=== PATIENT | male | born 1945 | race Caucasian/White ===

== ENCOUNTER → 2016-09-02 10:20 | Outpatient (CLI) | payer BC, MEDICARE ==
[2015-09-21 08:48] VITALS: BMI 19.3
[~2016-09-02 10:20] MED LIST: BAYER CHEWABLE81 MG PO; CATAPRES0.1 MG PO; COMBIGAN OPHT DR5 ML LEFT EYE; CORDARONE200 MG PO; ELIQUIS2.5 MG PO; HUMALOG MIX 50/53 ML SQ; HYDROCODONE-APA1 TAB PO; LANTUS INSULIN10 ML; LISINOPRIL10 MG PO; MEGACE40 MG PO; MULTIPLE VITAMI1 TA1 PO; NIFEDIPINE ER30 MG PO; PEPCID20 MG PO; PRINIVIL20 MG PO; RENA-VITE TABL0.8 MG PO; RENVELA800 MG PO; REVATIO20 MG PO; ROCALTROL0.25 MCG PO; TOUJEO SOL300 UNIT/1; TRAZODONE HCL50 MG PO; XALATAN 0.0052.5 ML LEFT EYE; ZOCOR20 MG PO
== END | disposition home or self-care (01) ==
LOC: D.RAD 10:20 → D.CT 11:00 → D.RAD 11:00
DX: M25.552 Pain in left hip (principal)

== ENCOUNTER → 2016-09-15 15:30 | Outpatient (CLI) | payer BC, MEDICARE ==
[2015-09-21 08:48] VITALS: BMI 19.3
== END | disposition home or self-care (01) ==
LOC: D.CT 14:00
DX: M25.552 Pain in left hip (principal); R93.8 Abnormal findings on diagnostic imaging of other specified body structures

== ENCOUNTER 2017-04-29 09:13 | Emergency (ER) | payer BC, MEDICARE ==
[2015-09-21 08:48] VITALS: BMI 19.3
== END 2017-04-29 11:30 | disposition home or self-care (01) ==
LOC: D.ER 09:13
DX: M54.30 Sciatica, unspecified side (principal); S39.012A Strain of muscle, fascia and tendon of lower back, initial encounter; W19.XXXA Unspecified fall, initial encounter; Y93.89 Activity, other specified; Y92.019 Unspecified place in single-family (private) house as the place of occurrence of the external cause; E11.9 Type 2 diabetes mellitus without complications; Z79.4 Long term (current) use of insulin; I10 Essential (primary) hypertension

== ENCOUNTER 2017-05-26 06:34 | Inpatient (IN) | payer BC, MEDICARE ==
[~2017-05-26] VITALS: Ht 180.3 cm; Wt 62.1 kg
[2017-05-26] MEDS ORDERED: GABAPENTIN100 MG PO (09:49)
[2017-05-26] MEDS ORDERED: HYDRALAZINE HCL50 MG PO (09:51)
[2017-05-26] MEDS ORDERED: LASIX20 MG PO (09:51)
[2017-05-26] MEDS ORDERED: METOPROLOL TART50 MG PO (09:53)
[2017-05-26] MEDS ORDERED: NOVOLOG100 U/M1 (10:05)
[2017-05-26] MEDS ORDERED: TRESIBA FL100 UNIT/1 SC (10:05)
[2017-05-26 15:36] VITALS: BP 160/77
[2017-05-26 16:05] VITALS: BP 182/87; Ht 180.3 cm; Wt 62.1 kg
[2017-05-26 20:11] VITALS: BP 155/78
[2017-05-27] VITALS: BP 146/80
[2017-05-27 05:10] LABS: BASOPHILS 0.4 % (0-2); EOSINOPHILS 1.2 % (0-7); HEMATOCRIT 32.2 % (42.0-54.0); HEMOGLOBIN 10.8 g/dL (13.5-17.5); IMMATURE GRANULOCYTES 0.2 % (0-5); LYMPHOCYTES 26.3 % (15-50); MCH 33.9 pg (26.0-34.0); MCHC 33.5 g/dL (31.0-37.0); MCV 100.9 fL (80.0-100.0); MEAN PLATELET VOLUME 10.3 fL (7.4-10.4); MONOCYTES 10.5 % (2-11); NEUTROPHILS 61.4 % (40-80); PLATELET COUNT 327 10x3/uL (130-400); RBC 3.19 10x6/uL (4.20-6.10); RDW 13.1 % (11.5-14.5); WBC 8.4 10x3/uL (4.8-10.8)
[2017-05-27 05:33] VITALS: BP 146/73
[2017-05-27 05:40] LABS: ANION GAP 12.9 mmol/L (8-16); CALCIUM 8.6 mg/dL (8.5-10.1); CARBON DIOXIDE 30.2 mmol/L (21.0-32.0); CREATININE - SERUM 4.9 mg/dL (0.6-1.3); PHOSPHOROUS 4.6 mg/dL (2.5-4.9); POTASSIUM - SERUM 4.1 mmol/L (3.5-5.1)
[2017-05-27 05:43] LABS: TROPONIN-I 0.072 ng/mL (0.000-0.060)
[2017-05-27 08:33] VITALS: BP 131/73
== END 2017-05-27 10:45 | disposition home or self-care (01) | DRG 291 ==
LOC: D.M2 06:34 → OBSVTIME 07:51 → D.M2 09:08
PROVIDERS: Internal Medicine Nephrology
PROC: 5A1D70Z Performance of Urinary Filtration, Intermittent, Less than 6 Hours Per Day (ICD-10-PCS; principal; 2017-05-26)
DX: I13.2 Hypertensive heart and chronic kidney disease with heart failure and with stage 5 chronic kidney disease, or end stage renal disease (principal); N18.6 End stage renal disease; J81.0 Acute pulmonary edema; E87.70 Fluid overload, unspecified; I50.9 Heart failure, unspecified; E11.22 Type 2 diabetes mellitus with diabetic chronic kidney disease; Z99.2 Dependence on renal dialysis; Z79.4 Long term (current) use of insulin; I48.0 Paroxysmal atrial fibrillation; H40.9 Unspecified glaucoma

== ENCOUNTER 2017-08-16 18:06 | Emergency (ER) | payer BC, MEDICARE ==
[~2017-08-16] VITALS: Ht 180.3 cm; Wt 68.2 kg
[~2017-08-16 18:06] MED LIST changes: +GABAPENTIN100 MG PO; +HYDRALAZINE HCL50 MG PO; +LASIX20 MG PO; +METOPROLOL TART50 MG PO; +NOVOLOG100 U/M1; +TRESIBA FL100 UNIT/1 SC
[2017-08-16 18:15] VITALS: Ht 180.3 cm; Wt 68.2 kg
[2017-08-16 21:00] VITALS: BP 216/111
== END 2017-08-16 21:30 | disposition home or self-care (01) ==
LOC: D.ER 18:06
DX: S49.92XA Unspecified injury of left shoulder and upper arm, initial encounter (principal); W22.8XXA Striking against or struck by other objects, initial encounter; Y93.89 Activity, other specified; Y92.019 Unspecified place in single-family (private) house as the place of occurrence of the external cause; I12.0 Hypertensive chronic kidney disease with stage 5 chronic kidney disease or end stage renal disease; N18.6 End stage renal disease

== ENCOUNTER 2017-09-01 14:11 | Emergency (ER) | payer BC, MEDICARE ==
[~2017-09-01] VITALS: Ht 180.3 cm; Wt 67.1 kg
[2017-09-01 14:14] VITALS: Ht 180.3 cm; Wt 67.1 kg
[2017-09-01 16:04] LABS: BASOPHILS 0.3 % (0-2); EOSINOPHILS 0.8 % (0-7); HEMATOCRIT 35.8 % (42.0-54.0); IMMATURE GRANULOCYTES 0.2 % (0-5); LYMPHOCYTES 12.8 % (15-50); MCH 34.2 pg (26.0-34.0); MCHC 33.5 g/dL (31.0-37.0); MEAN PLATELET VOLUME 10.4 fL (7.4-10.4); MONOCYTES 5.6 % (2-11); NEUTROPHILS 80.3 % (40-80); PLATELET COUNT 202 10x3/uL (130-400); RBC 3.51 10x6/uL (4.20-6.10); RDW 13.4 % (11.5-14.5)
[2017-09-01 16:19] LABS: KETONE - SERUM NEGATIVE (NEGATIVE)
[2017-09-01 16:32] LABS: ALBUMIN 4.1 g/dL (3.4-5.0); ALKALINE PHOSPHATASE 78 U/L (46-116); ALT (SGPT) 21 U/L (10-68); BILIRUBIN - TOTAL 0.38 mg/dL (0.2-1.3); CALC OSMOLALITY 292 mosm/kg (275-300); CARBON DIOXIDE 30.6 mmol/L (21.0-32.0); CHLORIDE - SERUM 99 mmol/L (98-107); CREATININE - SERUM 7.6 mg/dL (0.6-1.3); POTASSIUM - SERUM 4.9 mmol/L (3.5-5.1); PROTEIN - SERUM 7.6 g/dL (6.4-8.2); SODIUM 139 mmol/L (136-145); UREA NITROGEN 47 mg/dL (7-18); eGFR NON AFRICAN AMERICAN 7 mL/min (90-120)
[2017-09-01 16:33] LABS: GLUCOSE 151 mg/dL (74-106)
[2017-09-01 16:39] LABS: CKMB 4.6 U/L (0.0-3.6); CREATINE KINASE 180 UL (21-232); MAGNESIUM - SERUM 2.6 mg/dL (1.8-2.4)
[2017-09-01 16:59] LABS: APPEARANCE CLEAR (CLEAR); BILIRUBIN NEGATIVE (NEGATIVE); COLOR YELLOW (YELLOW); GLUCOSE 500 mg/dL (NEGATIVE); KETONE NEGATIVE (NEGATIVE); NITRITE NEGATIVE (NEGATIVE); PROTEIN 1+ mg/dL (NEGATIVE); RED CELLS - URINE 0-5 /hpf (0-5); UROBILINOGEN NORMAL (NORMAL); WHITE CELLS - URINE 0-5 /hpf (0-5)
[2017-09-01 20:11] VITALS: BP 215/104
== END 2017-09-01 20:12 | disposition left against medical advice (07) ==
LOC: D.ER 14:11
PROVIDERS: Family Medicine
DX: E11.649 Type 2 diabetes mellitus with hypoglycemia without coma (principal); N17.9 Acute kidney failure, unspecified; I10 Essential (primary) hypertension; K21.9 Gastro-esophageal reflux disease without esophagitis

== ENCOUNTER 2018-01-25 09:59 | Inpatient (IN) | payer MEDICARE, BC ==
[~2018-01-25] VITALS: Ht 180.3 cm; Wt 65.7 kg
--- NOTE | ~2018-01-25 | CN ---
PATIENT NAME:MICHELET SHI MEDICAL RECORD: [id number] : 45 LOCATION:D. D.2139 ADMIT DATE: 01/25/18 ACCOUNT: [id number] CONSULTING PHYSICIAN: AIDE GARCIA MD REFERRING PHYSICIAN: BHARAT COOPER MD DATE OF CONSULTATION: 01/25/2018 CARDIOLOGY CONSULT DIAGNOSES: 1. Elevated troponin, non-Q-wave myocardial infarction. 2. Coronary artery disease. 3. Status post coronary artery bypass graft surgery. 4. Hypertension. 5. End-stage renal failure, on dialysis. HISTORY OF PRESENT ILLNESS: Mr. Shi presents with chest discomfort. Troponin is positive. EKG shows T-wave inversions in the lateral leads. He does have a history of coronary artery disease, status post coronary artery bypass graft surgery in 2016, 4-vessel. PHYSICAL EXAMINATION: GENERAL APPEARANCE: Well-nourished, well-developed, appears stated age. Level of distress, comfortable. PSYCHIATRIC: Mental status, alert, normal affect. Orientation, oriented to time, place and person. EYES: Lids and conjunctiva, noninjected. No discharge, no pallor. ENT: Lips, teeth, gums, normal dentition. Oropharynx, no cyanosis, no pallor. NECK: Carotid arteries, bilateral normal upstroke, no bruits, no thrills. JUGULAR VEINS: No jugular venous pressure or distention. CERVICAL LYMPH NODES: Nontender, nonenlarged. THYROID: Not enlarged. Nontender. No nodules. LUNGS: Respiratory effort, unlabored. CHEST: Normal curvature. No thoracic deformity. No chest wall tenderness. Percussion, resonant. Auscultation, clear. No wheezes, no rales, no rhonchi. CARDIOVASCULAR: Precordial exam, nondisplaced. No heaves or pericardial thrills. Rate and rhythm, regular. Heart sounds, normal S1, normal S2. No S3, no gallop, no rub. Systolic murmur, not heard. Diastolic murmur, not heard. EXTREMITIES: No cyanosis, no edema. Peripheral pulses, full and equal in all extremities, except as noted. No bruits appreciated. ABDOMEN: Soft, nondistended. Normal aorta. No bruit. Nontender. No masses. Liver, nontender, no hepatomegaly. Spleen, nontender, no splenomegaly. MUSCULOSKELETAL: No joint tenderness. No joint swelling. No erythema. NEUROLOGICAL: Normal gait, normal strength, normal tone. SKIN: Warm and dry. OVERALL IMPRESSION: Non-Q-wave myocardial infarction with increasing chest pain, abnormal ECG, most likely he has impending graft failure or new hemodynamically significant disease. We will proceed with coronary angiography. Further care depends upon the findings of the angiography. TRANSINT:[id number] Voice Confirmation ID: [id number] DOCUMENT ID: [id number] CONSULT REPORT [id number] MICHELET SHI JEFFREY MD at 1025 CC: [id number] DICTATION DATE: 01/25/18 1132 GEOPHYSICAL PROSPECTING PERMIT AGENT: 01/25/18 1157 DIS IN 01/26/18 [place] [id number] [place] [address]
--- NOTE | ~2018-01-25 | OP ---
PATIENT NAME: MICHELET SHI MEDICAL RECORD: [id number] :45 LOCATION:D.M2 D.2139 ADMISSION DATE:01/25/18 SURGEON: AIDE GARCIA MD DATE OF OPERATION: 01/26/2018 PROCEDURES: 1. PTCA stent RCA. 2. Intravascular ultrasound. 3. Left heart catheterization. 4. Selective coronary angiography. 5. Vein graft angiography. 6. CALL angiography. 7. Left ventriculogram. INDICATION: Angina and coronary artery disease, non-Q-wave myocardial infarction. PROCEDURE IN DETAIL: After informed consent was obtained and after a detailed description of the risks, benefits as well as alternative therapies, the patient elected to proceed with angiogram and angioplasty. The right femoral area was prepped and draped in normal sterile fashion. Right femoral artery was cannulated via modified Seldinger technique with placement of 6-Croatian sheath. All catheters exchanged through this sheath. FINDINGS: The left ventriculogram was performed in standard 30-degree NYE view reveals preserved cardiac wall motion, ejection fraction estimated at 50% to 55%. SELECTIVE CORONARY ANGIOGRAPHY: 1. Left main is with no significant angiographic disease. 2. Left anterior descending is totally occluded in the mid vessel 3. CALL to the LAD is widely patent. 4. Left circumflex is totally occluded mid vessel. 5. Vein graft to the circumflex in a skipped fashion from OM1-OM2 is widely patent. 6. The right coronary artery has a long area of 80+ percent stenosis confirmed by intravascular ultrasound in the mid vessel. This is a non-grafted vessel. PTCA STENT OF THE RIGHT CORONARY ARTERY: The stent used was 3.5 x 38 and 3.5 x 22, both [place] stents. Result was 0% residual stenosis. OVERALL IMPRESSION: Successful percutaneous transluminal coronary angioplasty stent of the right coronary artery going from 80% initial stenosis to 0% residual. TRANSINT:[id number] Voice Confirmation ID: [id number] DOCUMENT ID: [id number] OPERATIVE REPORT [id number] MICHELET HSI JEFFREY MD at 1021 CC: [id number] DICTATION DATE: 01/26/18 1001 ROLLER MAKER: 01/26/18 1151 DIS IN 01/26/18 [place] [id number] [place] [id number]
--- NOTE | ~2018-01-25 | MORECARE ---
CASE MANAGEMENT DISCHARGE SUMMARY PATIENT: MICHELET SHI UNIT: [id number] ADM DATE: 01/25/18 AGE: 72 : 45 SEX: M ROOM/BED: D.2139 AUTHOR: SANTOS JAMES PHYSICIAN: REFERRING PHYSICIAN: BHARAT COOPER MD DATE OF SERVICE: 01/27/18 Discharge Plan Patient Name: MICHELET SHI Facility: [facility]:[place] : 1945 Planned Disposition: Home Anticipated Discharge Date: 01/26/18 Discharge Date: 01/26/2018 Expected LOS: 1 Initial Reviewer: [email or web address] Initial Review Date: 01/27/2018 Generated: 01/27/18 7:54 am Patient Name: MICHELET SHI Page [id number] at 0654 All edits/amendments must be made on the electronic document DICTATION DATE: 01/27/18653 MARKET GARDENER: YESI 01/27/18653 RPT#: [id number] DC DATE:01/26/18 STATUS: DIS IN [facility] [address] [facility] [place] [address] END OF REPORT
--- NOTE | ~2018-01-25 | EC ---
PATIENT:MICHELET SHI DATE OF SERVICE: 01/25/18 SEX: M MEDICAL RECORD: [id number] DATE OF : 45 LOCATION:D. D.213 AGE OF PATIENT: 72 ADMISSION DATE: 01/25/18 REFERRING PHYSICIAN: INTERPRETING PHYSICIAN: AIDE GONZALEZ MD ECHOCARDIOGRAM REPORT ECHO CHARGES 4 ECHO COMPLETE Date: 01/25/18 CLINICAL DIAGNOSIS: CAD/HX OF CABG/ PULMONARY EDEMA/ELEVATED TROPONIN ECHOCARDIOGRAPHIC MEASUREMENTS (adult normal given) AC root (d.<3.7cm) 3.3 cm LV Septum d (<1.2 cm> 1.2 cm Valve Excursion 1.3 cm LV Septum (systole) 1.5 cm Left Atria (s.<4.0cm> 4.0 cm LVPW d(<1.2cm) 1.4 cm RV (d.<2.3cm) 4.1 cm LVPW (sytole) 1.8 cm LV diastole(<5.6CM) 5.1 cm MV E-F(>70mm/sec) cm LV systole 4.1 cm LVOT Diameter 1.5 cm MV exc.(>10mm) 1.1 cm Est.ejection fraction (50-75%) % DOPPLER: LVIT cm/sec A 125 cm/sec E 111 cm/sec LA cm/sec RVSP 55 mmHg LVOT 112 cm/sec AOP1/2T m/s Asc. Ao 163 cm/sec RVOT 114 cm/sec RA cm/sec PA 128 cm/sec AV Gradient Peak 10.58mmHg AV Mean 5.32 mmHg AV Area 1.2 cm MV Gradient Peak 8.56 mmHg MV Mean 4.78 mmHg MV Area cm COMMENTS: Class A Truck Driver: Ajay PEREZ Hospital Administrator: 1 Dr. Gonzalez TAPE# PACS Pericardial Effusion N DATE OF SERVICE: 01/25/2018 PROCEDURE: Echocardiogram. FINDINGS: 1. Left ventricular chamber size is within normal limits. Left ventricular systolic function lower limits of normal at 45% to 50%. 2. Left atrium is upper limits of normal at 4.0 cm. Right atrium and right ventricle chamber sizes are mildly dilated. 3. Valvular structures have normal structure and motion. ECHOCARDIOGRAM REPORT [id number] MICHELET SHI 4. Doppler interrogation reveals sorh-my-hcggorht mitral regurgitation, mild to moderate tricuspid regurgitation, no other valvular insufficiency or stenosis. Pulmonary systolic pressure; however, is elevated at 55 mmHg. 5. No evidence of pericardial effusion or left ventricular thrombus. TRANSINT:[id number] Voice Confirmation ID: [id number] DOCUMENT ID: [id number] AIDE GONZALEZ MD at 1025 CC: [id number] DICTATION DATE: 01/26/18 1039 DESIGN DRAFTSMAN: 01/26/18 1201 DIS IN 01/26/18 [place] [id number] [place] [id number]
--- NOTE | ~2018-01-25 | HEMODYNAMI ---
PATIENT:MICHELET SHI MEDICAL RECORD: [id number] : 45 [id number] AD[facility] DATE: 01/25/18 Generatedon:01/26/201810:05 Patient name: MICHELET SHI Patient #: [id number] SSN: : 1945 Date of study: 01/26/2018 Page: Of Hemodynamic Procedure Report Patient Data Patient Demographics Procedure consent was obtained First Name: MICHELET Gender: Male Last Name: JOSE GUADALUPE : 1945 [facility] Initial: D Age: 72 year(s) Patient #: [id number] Race: Unknown Additional ID: [id number] Contact details Address: [address] [place] [address] State: [place] City: [place] Zip code: [address] Past Medical History Allergies: No known allergies Admission Admission Data Admission Date: 01/25/2018 Admission Time: 10:35 Admit Source: Other Room #: D.2139 Lab Results Lab Result Date: 01/26/2018 Lab Result Time: 0:00 Biochemistry Name Units Result Min Max BUN mg/dl 84 --(----)-* 7 18 Creatinine mg/dl 10.1 --(----)-* 0.6 1.3 CBC Name Units Result Min Max Hemoglobin g/dl 12.7 -*(----)-- 13.5 17.5 Procedure Procedure Types Cath Procedure Diagnostic Procedure LHC LHC w/Coronaries w/Grafts FFR/IVUS Intra-Coronary IVUS Initial Sedation Charges Moderate Sedation up to 15 minutes PCI Procedure Coronary Stent Coronary Stent Initial Procedure Description Procedure Date Procedure Date: 01/26/2018 Procedure Start Time: 9:44 Procedure End Time: 10:05 Procedure Staff Name Function Gama Gonzalez MD Performing Physician Lilli Montalvo RN Cell Tester Analia Chaney RN Nurse Jeremiah Cade RT Scrub Candida Whitley RT Monitor Procedure Data Cath Procedure Fluoroscopy Diagnostic fluoroscopy Total fluoroscopy Time: 5.4 time: 5.4 min min Diagnostic fluoroscopy Total fluoroscopy dose: 610 dose: 610 mGy mGy Contrast Material Contrast Material Type Amount (ml) Isovue 300 144 Entry Location Entry Primary Successful Side Size Upsize Upsize Entry Closure Succes sful Closure Location (Fr) 1 (Fr) 2 (Fr) Remarks Device Remarks Femoral Right 5 Fr 6 Fr Exoseal artery Short Estimated blood loss: 10 ml Diagnostic catheters Device Type Used For End Catheter Placement MULTIPACK Pigtail 5 Fr LV Angiography catheter MULTIPACK JL 4.0 5Fr Left Coronary catheter Angiography MULTIPACK 3DRC 5Fr Internal mammary catheter arteriography MULTIPACK 3DRC 5Fr Right Coronary catheter Angiography DIAGNOSTIC AR1 MOD 5Fr SVG Angiography catheter ([id number]) Procedure Complications No complications Procedure Medications Medication Administration Route Dosage 0.9% NaCl I.V. Oxygen etCO2 Nasal cannula 2 l/min Lidocaine 2% added to field 20 Heparin Flush Bag added to field 2 bags (1000units/500ml NS) Versed I.V. 2 mg Fentanyl I.V. 100 mcg Versed I.V. 2 mg Heparin Bolus I.V. 4000 units Plavix P.O. 75 mg Hemodynamics Rest HGB: 12.7 (g/dl) Heart Rate: 103 (bpm) Snapshots Pre Cath Intra NCS Post Cath Vital Signs Time Heart Resp SPO2 etCO2 NIBP (mmHg) Rhythm Pain Sedation Rate (ipm) (%) (mmHg) Status Level (bpm) 9:31:42 94 10 98 35.7 171/92(140) NSR 0 (11) 10(A) , No pain 9:35:58 88 10 99 33 139/79(116) NSR 0 (11) 10(A) , No pain 9:40:02 92 12 96 19 102/79(96) NSR 0 (11) 10(A) , No pain 9:44:55 90 14 97 41.8 131/75(99) NSR 0 (11) 9(A) , No pain 9:50:02 84 15 95 35.7 128/57(98) NSR 0 (11) 9(A) , No pain 9:54:14 84 13 97 28.1 122/69(108) NSR 0 (11) 9(A) , No pain 9:58:28 83 16 98 38 123/70(90) NSR 0 (11) 9(A) , No pain 10:02:44 84 6 98 33.4 117/61(97) NSR 0 (11) 10(A) , No pain Medications Time Medication Route Dose Verified Delivered Reason Notes Effectiveness by by 9:30:58 0.9% NaCl I.V. kvo Gama Analia used for Lisa Chaney property administrator 9:31:05 Oxygen etCO2 2 Gama Analia used for Nasal l/min Lisa Chaney procedure cannula RN 9:31:09 Lidocaine 2% added 20ml Gama Gama for local to vial Lisa Gonzalez MD anesthetic field 9:31:15 Heparin Flush added 2 Gama Gama used for Bag to bags Lisa Gonzalez MD procedure (1000units/500ml field NS) 9:37:06 Versed I.V. 2 mg Gama Analia for sedation Lisa Chaney RN 9:37:13 Fentanyl I.V. 100 Gama Analia for sedation mcg Lisa Chaney RN 9:43:00 Versed I.V. 2 mg Gama Analia for sedation Lisa Chaney RN 9:52:32 Heparin Bolus I.V. 4000 Gama Analia for verif ied units Lisa Chaney anticoagulation with Dr. KIM Gonzalez 10:03:36 Plavix P.O. 75 mg Gama Analia for Lisa Chaney antiplatelet RN therapy Procedure Log Time Note 9:14:43 Admit Source: Other 9:15:34 Diagnostic Cath status Elective 9:15:39 Lilli Montalvo RN sent for patient. Start room use. 9:15:40 Time tracking: Regular hours (M-F 7:00 - 5:00) 9:15:45 Plan of Care:Hemodynamics will remain stable., Cardiac rhythm will remain stable., Comfort level will be maintained., Respiratory function will remain adequate., Patient/ family verbilizes understanding of procedure., Procedure tolerated without complication., Recovers from procedure without complications.. 9:16:30 Lab Result : Creatinine 10.1 mg/dl 9:16:30 Lab Result : BUN 84 mg/dl 9:16:30 Lab Result : Hemoglobin 12.7 g/dl 9:16:34 Lab results completed and on chart. 9:28:38 Patient received from PCU to CCL 1 Alert and oriented. Tansferred to table in Supine position. 9:28:39 Warm blankets applied, and najma hugger turned on for patient comfort. 9:28:40 Correct patient and procedure confirmed by team. 9::41 Signed procedure consent form obtained from patient. 9:28:43 ECG and BP/O2 sat monitors applied to patient. 9:28:44 Vital chart was started 9:28:45 Baseline sample Acquired. 9:28:51 Rhythm: sinus tachycardia 9:28:53 Full Disclosure recording started 9:30:58 0.9% NaCl kvo I.V. was administered by Analia Chaney RN; used for procedure; 9:31:05 Oxygen 2 l/min etCO2 Nasal cannula was administered by Analia Chaney RN; used for procedure; 9:31:09 Lidocaine 2% 20ml vial added to field was administered by Gama Gonzalez MD; for local anesthetic; 9:31:15 Heparin Flush Bag (1000units/500ml NS) 2 bags added to field was administered by Gama Gonzalez MD; used for procedure; 9:34:54 H&P Date Dictated: 01/25/2018 Within 30 days and on chart., H&P Addendum completed by physician on day of procedure. (MUST COMPLETE FOR ALL OUTPATIENTS). 9:34:56 Pre-procedure instructions explained to patient. 9:34:56 Pre-op teaching completed and patient verbalized understanding. 9:34:59 Family in patients room. 9:35:00 Patient NPO since Midnight. 9:35:07 Patient allergic to No known allergies 9:35:52 Is the patient allergic to Iodine/contrast media? No. 9:35:54 Was the patient premedicated? No 9:35:55 Patient diabetic? Yes. 9:35:56 If diabetic: On Metformin? No 9:36:01 Previous problem with sedation/anesthesia? No ? 9:36:02 Snore? No 9:36:03 Sleep apnea? No 9:36:05 Deviated septum? No 9:36:05 Opens mouth fully? Yes 9:36:06 Sticks out tongue? Yes 9:36:08 Airway obstruction? No ? 9:36:10 Dentures? No ? 9:36:12 Pre procedure: right dorsailis pedis pulse 2+ Normal; easily identifiable; not easily obliterated 9:36:14 Patient pain scale 0/10 ?. 9:36:19 IV patent on arrival in right wrist with 0.9% NaCl at [facility]. 9:36:24 Right groin area was prepped with chlora-prep and draped in sterile fashion 9:36:25 Alarms reviewed by R. N. 9:36:25 Sharps counted by scrub and verified by R.N. 9:36:27 Final Timeout: patient, procedure, and site verified with staff and physician. All members of the team are in agreement. 9:36:29 Right groin site verified by team. 9:36:32 Physical assessment completed. ASA score P 3 - A patient with severe systemic disease as per Gama Gonzalez MD. 9:36:35 Sedation plan: IV Moderate Sedation Medication:Versed, Fentanyl 9:36:52 Use device set Femoral Dx 9:36:53 ACIST Syringe (71756) opened to sterile field. 9:36:54 Bag Decanter (2002S) opened to sterile field. 9:36:54 Medline Cath Pack ([id number]) opened to sterile field. 9:36:55 DIAGNOSTIC WIRE .035 260cm J wire (975960) opened to sterile field. 9:36:56 ACIST Hand Control (20103) opened to sterile field. 9:36:56 ACIST Manifold (74304) opened to sterile field. 9:36:57 DIAGNOSTIC Multipack 5Fr catheter set (GH2066) opened to sterile field. 9:36:58 Tegaderm 4 x 4 (1626W) opened to sterile field. 9:36:59 SHEATH 5FR [place] (UFJ511) opened to sterile field. 9:37:06 Versed 2 mg I.V. was administered by Analia Chaney RN; for sedation; 9:37:13 Fentanyl 100 mcg I.V. was administered by Analia Chaney RN; for sedation; 9:40:52 Procedure type changed to Cath procedure, Diagnostic procedure, LHC, LHC w/Coronaries w/Grafts, FFR/IVUS, Intra-Coronary IVUS Initial, Sedation Charges, Moderate Sedation up to 15 minutes, PCI procedure, Coronary Stent, Coronary Stent Initial 9:42:24 Zero performed for pressure channel P1 9:42:29 Zero performed for pressure channel P1 9:43:00 Versed 2 mg I.V. was administered by Analia Chaney RN; for sedation; 9:44:47 Procedure started. 9:44:50 Local anesthetic to right femoral artery with Lidocaine 2% by Gama Gonzalez MD.INITIAL ACCESS ONLY 9:45:29 A 5 Fr sheath was inserted into the Right Femoral artery 9:46:14 A MULTIPACK Pigtail 5 Fr catheter was advanced over the wire and used for LV Angiography. 9:46:16 LV gram done using NYE 9:46:18 LV hemodynamics recorded. 9:46:20 Injector settings: Ml/sec: 10, Volume: 20, 9:46:29 EF : 50 % 9:46:35 Catheter removed. 9:46:49 A MULTIPACK JL 4.0 5Fr catheter was advanced over the wire and used for Left Coronary Angiography. 9:47:32 Catheter removed. 9:48:35 A MULTIPACK 3DRC 5Fr catheter was advanced over the wire and used for Internal mammary arteriography.TO LAD 9:49:06 A MULTIPACK 3DRC 5Fr catheter was advanced over the wire and used for Right Coronary Angiography. 9:49:17 Catheter removed. 9:49:20 Use device set [facility] PCI 9:49:22 SHEATH 6FR [place] (MHG362) opened to sterile field. 9:50:48 A DIAGNOSTIC AR1 MOD 5Fr catheter ([id number]) was advanced over the wire and used for SVG Angiography. TO CIRC 9:50:53 Catheter removed. 9:50:55 INFLATOR Merit BasixCompak (TL2891) opened to sterile field. 9:51:01 CHOICE PT Extra Support 182cm wire ([id number]) opened to sterile field. 9:51:07 GUIDE 6FR AR 2.0 SH catheter ([id number]) opened to sterile field. 9:51:21 Sheath upsized to a 6 Fr Short. 9:52:21 6 Fr AR 2.0 SH guide catheter was inserted over the wire 9:52:32 Heparin Bolus 4000 units I.V. was administered by Analia Chaney RN; for anticoagulation; verified with Dr. Gonzalez 9:53:05 CHOICE PT ES wire advanced. 9:53:46 IVUS catheter advanced over wire. 9:53:58 IVUS pass to RCA lesion performed. 9:54:05 IVUS catheter removed over wire. 9:55:57 Inflate balloon Inflation number: 1 A EUPHORA 3.5 x 30 Balloon ([id number]) was prepped and advanced across the Prox RCA, then inflated to 13 ANDREEA for 0:09 (min:sec). 9:56:24 Inflation number: 2 The EUPHORA 3.5 x 30 Balloon ([id number]) was reinflated across the Prox RCA, to 13 ANDREEA for 0:06 (min:sec). 9:57:02 Balloon removed over the wire. 9:57:49 Place stent Inflation Number: 3 A NELLA RX 3.5 x 38 stent ([id number]) was prepped and advanced across the Prox RCA. The stent was deployed at 15 ANDREEA for 0:04 (min:sec). 9:58:24 Stent catheter was removed intact over wire. 9:59:21 Place stent Inflation Number: 4 A NELLA RX 3.5 x 22 stent ([id number]) was prepped and advanced across the Prox RCA. The stent was deployed at 19 ANDREEA for 0:07 (min:sec). 9:59:30 Inflation number: 5 The stent balloon was then re-inflated across the Prox RCA to 21 ANDREEA for 0:05 (min:sec). 9:59:54 Stent catheter was removed intact over wire. 10:00:01 Wire removed. 10:00:04 Guide catheter removed. 10:00:13 Sheath removed intact; hemostasis achieved with Exoseal to the Right Femoral artery. 10:00:17 EXOSEAL 6Fr (EX600) opened to sterile field. 10:00:28 Procedure ended.(Physican Out) 10:01:37 Fluoroscopy time 05.40 minutes. 10:01:40 Fluoroscopy dose: 610 mGy 10:01:40 Flurop Dose total: 610 10:01:44 Contrast amount:Isovue 300 144ml. 10:01:46 Sharps counted by scrub and verified by R.N. 10:01:47 Insertion/operative site no bleeding no hematoma. 10:01:50 Post-op/insertion site Right Femoral artery dressed using a 4 x 4 and Tegaderm. 10:01:52 Post right femoral artery:stable, clean and dry 10:01:54 Post Procedure Pulses reassessed and unchanged 10:01:57 Post-procedure physical assessment completed. ASA score P 3 - A patient with severe systemic disease as per Gama Gonzalez MD. 10:01:59 Post procedure rhythm: unchanged. 10:02:04 Estimated blood loss: 10 ml 10:02:06 Post procedure instruction explained to patient.Patient verbalizes understanding. 10:02:06 Patient needs reinforcement of post procedure teaching. 10:02:12 Procedure Complication : No complications 10:02:14 See physician's report for complete and final results. 10:03:36 Plavix 75 mg P.O. was administered by Analia Chaney RN; for antiplatelet therapy; 10:04:59 [place] IVUS Catheter ([id number]) opened to sterile field. 10:05:15 Procedure and supply charges have been captured, reviewed, submitted and are correct. 10:05:15 Vital chart was stopped 10:05:18 Report given to PCU. 10:05:23 Patient transfered to PCU with Bed. 10:05:25 Procedure ended. 10:05:25 Full Disclosure recording stopped 10:05:30 End room use (Document Last) Intervention Summary Intervention Notes Time ActionType Lesion and Equipment Used Action# Pressure Duration Attributes 9:55:57 Inflate Prox RCA EUPHORA 3.5 x 1 13 00:10 balloon 30 Balloon ([id number]) 9:56:24 Reinflate Prox RCA EUPHORA 3.5 x 2 13 00:06 balloon 30 Balloon ([id number]) 9:57:49 Place stent Prox RCA NELLA RX 3.5 x 3 15 00:04 38 stent ([id number]) 9:59:21 Place stent Prox RCA NELLA RX 3.5 x 4 19 00:07 22 stent ([id number]) 9:59:30 Reinflate Prox RCA NELLA RX 3.5 x 5 21 00:05 stent 22 stent balloon ([id number]) Device Usage Item Name Manufacture Quantity Catalog Number Hospital Part Current M inimal Lot# / Charge Number Stock Stock Serial# Code ACIST Syringe Acist 1 50458 017357 045429 435863 2 0 (79202) [employer] Bag Decanter Microtek 1 838405 61854 369285 5 () Medical Inc. Medline Cath Medline 1 [id number] 512215 95941 586788 5 Pack ([id number]) DIAGNOSTIC St Navin 1 978596 018648 683757 675436 3 0 WIRE .035 260cm J wire (775128) ACIST Hand Acist 1 59191 123119 702323 443526 5 Control Medical (55150) Systems Inc ACIST Manifold Acist 1 32173 496873 907672 478496 5 (01286) Medical Systems Inc DIAGNOSTIC Cardinal 1 JN3872 962354 10118 750898 3 0 Multipack 5Fr Health catheter set (DH3324) Tegaderm 4 x 4 3M 1 1626W 768274 016228 903560 5 (1626W) SHEATH 5FR Terumo 1 SGY315 053666 522335 615840 4 0 [place] ([id number]) MULTIPACK Cardinal 1 429981 5 Pigtail 5 Fr Health catheter MULTIPACK JL Cardinal 1 570224 5 4.0 5Fr Health catheter MULTIPACK 3DRC Cardinal 1 619566 5 5Fr catheter Health SHEATH 6FR Terumo 1 EXN107 865008 858325 819114 4 0 [place] (SWZ971) DIAGNOSTIC AR1 Cardinal 1 [id number] 115367 149040 196787 1 5 MOD 5Fr Health catheter ([id number]) INFLATOR Merit Merit 1 AV1628 974460 149524 133299 1 5 [employer] (HY2654) CHOICE PT [place] 1 [id number] 073440 944871 693277 5 Extra Support Scientific 182cm wire ([id number]) GUIDE 6FR AR Medtronic 1 [id number] 533660 56296 508998 1 2.0 SH catheter ([id number]) EUPHORA 3.5 x Medtronic 1 [id number] 090728 223954 744069 5 [id number] 30 Balloon ([id number]) NELLA RX 3.5 x Medtronic 1 [id number] 530094 1742697 800631 5 [id number] 38 stent ([id number]) NELLA RX 3.5 x Medtronic 1 [id number] 769205 1713862 063504 5 [id number] 22 stent ([id number]) EXOSEAL 6Fr Cardinal 1 EX600 386765 808798 492232 1 0 (EX600) Health [place] 1 [id number] 175974 731165 717099 8 [place] IVUS Catheter (41478H) Signature Audit [place] Stage Time Signature Unsigned Intra-Procedure 01/26/2018 Candida 10:05:42 AM Counts RT(R) Signatures Monitor : Candida Signature : Counts RT Date : Time : [address] [address]
[2018-01-25 11:25] LABS: BASOPHILS 0.2 % (0-2); EOSINOPHILS 0.4 % (0-7); HEMATOCRIT 37.4 % (42.0-54.0); HEMOGLOBIN 12.7 g/dL (13.5-17.5); IMMATURE GRANULOCYTES 0.3 % (0-5); MCH 34.3 pg (26.0-34.0); MCV 101.1 fL (80.0-100.0); MEAN PLATELET VOLUME 10.7 fL (7.4-10.4); NEUTROPHILS 83.1 % (40-80); RDW 12.6 % (11.5-14.5); WBC 10.3 10x3/uL (4.8-10.8)
[2018-01-25 11:26] LABS: ANION GAP 21.4 mmol/L (8-16); CALCIUM 9.3 mg/dL (8.5-10.1); CREATININE - SERUM 10.1 mg/dL (0.6-1.3); MAGNESIUM - SERUM 2.6 mg/dL (1.8-2.4); POTASSIUM - SERUM 5.4 mmol/L (3.5-5.1)
[2018-01-25 11:27] LABS: PLATELET COUNT 260 10x3/uL (130-400)
[2018-01-25 11:58] VITALS: BP 199/92
[2018-01-25 13:59] VITALS: BP 199/72; BMI 21.2
[2018-01-25 16:01] VITALS: BP 162/77
[2018-01-25 21:10] VITALS: BP 160/82
[2018-01-26 05:44] VITALS: BP 160/82
[2018-01-26 06:06] LABS: BASOPHILS 0.3 % (0-2); EOSINOPHILS 1.2 % (0-7); HEMOGLOBIN 10.5 g/dL (13.5-17.5); IMMATURE GRANULOCYTES 0.3 % (0-5); LYMPHOCYTES 17.9 % (15-50); MCHC 33.9 g/dL (31.0-37.0); MCV 100.3 fL (80.0-100.0); MEAN PLATELET VOLUME 10.7 fL (7.4-10.4); MONOCYTES 12.9 % (2-11); NEUTROPHILS 67.4 % (40-80); PLATELET COUNT 224 10x3/uL (130-400); RBC 3.09 10x6/uL (4.20-6.10); RDW 12.7 % (11.5-14.5); WBC 7.8 10x3/uL (4.8-10.8)
[2018-01-26 06:27] LABS: ANION GAP 21.1 mmol/L (8-16); CALCIUM 8.4 mg/dL (8.5-10.1); CARBON DIOXIDE 26.4 mmol/L (21.0-32.0); CREATININE - SERUM 7.8 mg/dL (0.6-1.3); POTASSIUM - SERUM 4.5 mmol/L (3.5-5.1)
[2018-01-26 08:33] VITALS: BP 182/90
[2018-01-26 11:32] VITALS: BP 140/75
[2018-01-26 14:18] VITALS: Ht 180.3 cm; Wt 65.7 kg
[2018-01-26] MEDS ORDERED: NORVASC5 MG PO (16:03)
[2018-01-26] MEDS ORDERED: COREG12.5 MG PO (16:04)
[2018-01-26] MEDS ORDERED: PLAVIX75 MG PO (16:04)
[2018-01-26 16:10] VITALS: BP 137/66
== END 2018-01-26 19:00 | disposition home or self-care (01) | DRG 246 ==
LOC: D.ER 09:59 → D.M2 10:35
PROVIDERS: Internal Medicine Interventional Cardiology; Internal Medicine Nephrology
PROC: 5A1D70Z Performance of Urinary Filtration, Intermittent, Less than 6 Hours Per Day (ICD-10-PCS; 2018-01-25)
PROC: B2111ZZ Fluoroscopy of Multiple Coronary Arteries using Low Osmolar Contrast (ICD-10-PCS; 2018-01-26)
PROC: B2181ZZ Fluoroscopy of Left Internal Mammary Bypass Graft using Low Osmolar Contrast (ICD-10-PCS; 2018-01-26)
PROC: B2151ZZ Fluoroscopy of Left Heart using Low Osmolar Contrast (ICD-10-PCS; 2018-01-26)
PROC: 027035Z Dilation of Coronary Artery, One Artery with Two Drug-eluting Intraluminal Devices, Percutaneous Approach (ICD-10-PCS; principal; 2018-01-26 08:00)
PROC: 4A023N7 Measurement of Cardiac Sampling and Pressure, Left Heart, Percutaneous Approach (ICD-10-PCS; 2018-01-26 08:00)
DX: I21.4 Non-ST elevation (NSTEMI) myocardial infarction (principal); I50.41 Acute combined systolic (congestive) and diastolic (congestive) heart failure; N18.6 End stage renal disease; I13.2 Hypertensive heart and chronic kidney disease with heart failure and with stage 5 chronic kidney disease, or end stage renal disease; I25.119 Atherosclerotic heart disease of native coronary artery with unspecified angina pectoris; Z95.1 Presence of aortocoronary bypass graft; E11.22 Type 2 diabetes mellitus with diabetic chronic kidney disease; Z99.2 Dependence on renal dialysis; Z79.4 Long term (current) use of insulin

== ENCOUNTER → 2019-05-12 08:34 | Outpatient (CLI) | payer MEDICARE, BC ==
[2018-01-26 14:18] VITALS: BMI 20.2
--- NOTE | ~2019-05-12 | EC ---
PATIENT:MICHELET SHI DATE OF SERVICE: 05/12/19 SEX: M MEDICAL RECORD: [id number] DATE OF : 45 [facility] AGE [facility] PAT[facility]: 73 ADMISSION DATE: 05/12/19 REFERRING PHYSICIAN: INTERPRETING PHYSICIAN: AIDE GONZALEZ MD ECHOCARDIOGRAM REPORT ECHO CHARGES 4 ECHO COMPLETE Date: 05/12/19 CLINICAL DIAGNOSIS: CAD/MITRAL,TRICUSPID,AORITC REGURG, PULMONARY HTN CABG ECHOCARDIOGRAPHIC MEASUREMENTS (adult normal given) AC root (d.<3.7cm) 3.6 cm LV Septum d (<1.2 cm> 1.3 cm Valve Excursion 1.1 cm LV Septum (systole) 1.5 cm Left Atria (s.<4.0cm> 4.4 cm LVPW d(<1.2cm) 1.4 cm RV (d.<2.3cm) 4.2 cm LVPW (sytole) 1.7 cm LV diastole(<5.6CM) 5.6 cm MV E-F(>70mm/sec) cm LV systole 4.4 cm LVOT Diameter 1.6 cm MV exc.(>10mm) 1.3 cm Est.ejection fraction (50-75%) % DOPPLER: LVIT cm/sec A 64.0 cm/sec E 108.0 cm/sec LA cm/sec RVSP 47 mmHg LVOT 94 cm/sec AOP1/2T m/s Asc. Ao 152 cm/sec RVOT 58 cm/sec RA cm/sec PA 84 cm/sec AV Gradient Peak 9.22 mmHg AV Mean 5.12 mmHg AV Area 1.5 cm MV Gradient Peak 8.76 mmHg MV Mean 3.95 mmHg MV Area cm COMMENTS: Capsule Machine Operator: 2 XOCHILT PEREZ Grades 7 And 8 Visiting Teacher: 1 Dr. Gonzalez TAPE# PACS Pericardial Effusion N DATE OF SERVICE: ECHOCARDIOGRAM FINDINGS: 1. Left ventricular chamber size is mildly dilated. Left ventricular systolic function is preserved at 50%. 2. Left atrium is enlarged at 4.4 cm. Right atrium and right ventricular chamber sizes are as well mildly dilated. 3. Valvular structures have normal structure and motion. ECHOCARDIOGRAM REPORT [id number] MICHELET SHI 4. Doppler interrogation reveals mild aortic insufficiency, mild mitral regurgitation, mild tricuspid regurgitation, no other valvular insufficiency or stenosis. 5. No evidence of pericardial effusion or left ventricular thrombus. TRANSINT:[id number] Voice Confirmation ID: [id number] DOCUMENT ID: [id number] AIDE GONZALEZ MD CC: [id number] DICTATION DATE: 05/12/19 111 BOW STRING MAKER: 05/12/19 1310 REG [facility] [address] [id number]
[~2019-05-12 08:34] MED LIST changes: +COREG12.5 MG PO; +NORVASC5 MG PO; +PLAVIX75 MG PO
== END | disposition home or self-care (01) ==
LOC: D.HCCECHO 08:34
PROVIDERS: ATTEND Internal Medicine Interventional Cardiology
DX: I25.10 Atherosclerotic heart disease of native coronary artery without angina pectoris (principal)

== ENCOUNTER → 2019-07-28 09:39 | Outpatient (CLI) | payer MEDICARE, BC ==
[2018-01-26 14:18] VITALS: BMI 20.2
== END | disposition home or self-care (01) ==
LOC: D.CT 09:39
PROVIDERS: ATTEND Internal Medicine Nephrology
DX: I70.203 Unspecified atherosclerosis of native arteries of extremities, bilateral legs (principal)